=== PATIENT | male | born 1950 | race Caucasian/White ===

== ENCOUNTER 2016-06-11 13:40 | Inpatient (IN) | payer MEDICARE, MEDICAID ==
[~2016-06-11] VITALS: Ht 185.4 cm; Wt 114.4 kg
[~2016-06-11 13:40] MED LIST: HYDROCODONE-APA1 TA1 PO
[2016-06-11 13:43] VITALS: BP 109/59
[2016-06-11 14:02] LABS: HEMOGLOBIN 10.4 g/dL (14.1-18.0); LYMPH # 0.9 K/mm3 (0.7-4.5); LYMPH % 7.5 % (10-50)
[2016-06-11 14:03] LABS: URINE BLOOD 3+ (NEG)
[2016-06-11 14:08] LABS: URINE BILIRUBIN - DIPSTICK NEGATIVE (NEG)
--- NOTE | 2016-06-11 14:19 | Emergency Room Report ---
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 ADVISES PT NORMALLY HAS A CATH AND IT WAS REMOVED AND PT HAS HX OF HYDRONEPHROSIS. 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 N Clinical Suspician of Infection? N Mental Status: 1 - Regular (Normal Baseline) Sepsis Risk:Low Sepsis Risk Have you (or family members/close friends) recently traveled outside the [place]? N If Yes, where/when: Have you had exposure to infectious disease within the past month? N TB? Other? Specify: Patient states he is having some intermittent abdominal pain he states one episode of diarrhea he relates a history of back in March of having some of his toes and dictated on his LEFT leg and that he has a kidney stone in place he believes on the LEFT side that is still there and that his LEFT kidney doesn't work secondary to the blockage of the stone he states he has a follow-up appointment upcoming this she will Be done about that he states today that his legs are swollen up again his family member states his legs up and swollen like this previously patient states that he had a Rivera in place and there is moves several days ago and since then he hasn't had much urination. He denies any fevers or chills and denies any nausea or vomiting. States his abdominal pain when he has it is mild to moderate severity crampy. He complains more of a little bit of nausea now versus pain per se. No complaint of headache or chest pain Comment no old ekg call out to cardiology 340pm ALLERGIES Coded Allergies: No Known Allergies (01/28/15) History Medical History General CAD? No Immunization Hx DT/Tetanus 5-10 Years Ago Surgical Hx Previous Surgery?N Social History Smoking Hx Smoker: Former Smoker Tobacco: No Packs/day 1 1/2 - 2 Packs Alcohol Alcohol: No Review of Systems All Other Systems Reviewed and Negative Physical Exam Vital Signs Vital Signs Date Time Temp Pulse Resp B/P Pulse O2 O2 Flow FiO2 Ox Delivery Rate 06/11 1343 98.6 89 16 109/59 98 General Appearance: Nontoxic Head: Normocephalic, without obvious abnormality, atraumatic. Eyes: conjunctiva/corneas clear ENT: Mucous membranes moist. Neck: No jugular venous distention. Cardiac: regular rate and rhythm Lungs: Clear to auscultation bilaterally Abdomen: Nontender, Nondistended, positive bowel sounds, no rebound : No CVA tenderness Extremities: 3+ edema ble Musculoskeletal: No chest wall tenderness Skin: No rashes or lesions to exposed skin. Neurologic: Alert. No gross focal deficits Psychiatric: Normal affect (Seth HOLLIS, Jai) General Appearance normal appearance Respiratory Status No: respiratory distress. Cardiovascular no JVD Neurologic alert Medical Decision Making LABS/Meds/Orders Pt receiving controlled substance in ED? No Comment Patient has some dark urine in his bag not much is coming out is 3+ pitting edema is got a combination of third spacing of his fluid in his legs as well as looking possibly dry and neurovascularly with dark yellow urine less than 100 mL in his bag. We will await labs, ct, before giving either Lasix versus fluids. i had dw cardiology troponin, desired ECHO CT comes back with bilateral obstruction + UTI, needs stents, transfer to [phone] call out to Results/Orders Laboratory Tests 06/11/16 1353: Lipase 16 L 06/11/16 1353: Sodium 143, Potassium 4.7, Chloride 107, Carbon Dioxide 29, BUN 24 H, Creatinine 2.4 H, Estimated Creat Clear 49 L, Estimated GFR (MDRD) 27, Glucose 154 H, Calcium 7.9 L, Total Bilirubin 0.5, AST 10 L, ALT 18, Alkaline Phosphatase 82, Creatine Kinase 20 L, CK-MB (CK-2) Rel Index 7.0 H, CK and CKMB Interp 1.4, Troponin I 0.34 H, B-Natriuretic Peptide 376 H, Total Protein 5.2 L, Albumin 2.2 L, Globulin 3.0, Albumin/Globulin Ratio 0.7 L, WBC 11.4 H , RBC 3.37 L, Hgb 10.4 L, Hct 32.9 L, MCV 97.4, RDW 14.0, Plt Count 258, MPV 7.1 L, Gran % 85.7 H, Gran # 9.8 H, Total Counted 100, Lymphocytes % 7.5 L, Monocytes % 6.5, Eosinophils % 0.1, Basophils % 0.2, Neutrophils 77 H, Band Neutrophils 8, Lymphocytes (Manual) 14, Lymphocytes # 0.9, Monocytes (Manual) 1 L, Monocytes # 0.7, Eosinophils # 0.0, Basophils # 0.0, RBC/WBC/PLT Morphology NORMAL, Platelet Estimate NORMAL, PUBS MCHC 31.7 L, MCH 30.8, Urine Color OTHER , Urine Appearance TURBID, Urine pH 8.0, Ur Specific [place] 1.020, Urine Protein 3+ H, Urine Ketones NEGATIVE, Urine Blood 3+ H, Urine Nitrate POSITIVE H, Urine Bilirubin NEGATIVE, Urine Urobilinogen 0.2, Ur Leukocyte Esterase 3+ H, Urine RBC 20-50, Urine WBC TNTC, Urine Bacteria 4+, Urine Glucose NEGATIVE Current Medication Orders Sig/Alex Start time Last Medication Dose Route Stop Time Status Admin Levofloxacin/Dextrose 150 ML ONCE ONE 06/11 1615 CKDr IV 06/11 1744 Aspirin 0 .STK-MED ONE 06/11 1530 DC .ROUTE Aspirin 324 MG ONCE ONE 06/11 1515 DC 06/11 PO 06/11 1516 1531 Sodium Chloride 10 ML PRN PRN 06/11 1400 AC IV 06/12 1348 Orders Procedure Date/time Status DIET-NOTHING BY MOUTH 06/11 D Active CULTURE, BLOOD 06/11 1610 Active LACTIC ACID 06/11 1610 Active ECHO ADULT 06/[address] ABD REQUEST 06/11 1419 Complete LIPASE 06/11 1419 Complete CULTURE, URINE 06/11 1353 Active DIFFERENTIAL-WBC 06/11 1353 Complete IV SALINE LOCK 06/11 1349 Active URINARY CATHETER INSERT 06/11 1349 Active URINALYSIS/COMPLETE 06/11 1349 Complete CBC WITH AUTO DIFF 06/11 1349 Complete CARDIAC ENZYMES 06/11 1349 Complete CHEM 12 PROFILE 06/11 1349 Complete BRAIN NATRIURETIC PEPTIDE 06/11 1349 Complete CM/EKG 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 Clinical Impression Primary Impression: Hydronephrosis Qualifiers: Hydronephrosis type: with renal calculous obstruction Qualified Code: N13.2 - Hydronephrosis with renal and ureteral calculous obstruction Secondary Impressions: Edema Qualifiers: Edema type: unspecified Qualified Code: R60.9 - Edema, unspecified Elevated troponin Pneumonia UTI (urinary tract infection) Qualifiers: Urinary tract infection type: acute pyelonephritis Qualified Code: N10 - Acute pyelonephritis Condition STABLE Referrals ANTHONY BRIZUELA APRN (PCP/Family) ED Critical Care Critical Care No at 1615
[2016-06-11 14:33] LABS: NEUTROPHILS 77 % (42-76)
--- NOTE | 2016-06-11 15:27 | RADIOLOGY REPORT PS360 ---
CT ABD PELVIS W/O CONTRAST CLINICAL INDICATION: Kidney stones, abdominal pain, diarrhea KIDNEY,HYDRONEPHROSIS,ABD PAIN ORDERING PHYSICIAN: Jai Ann MD PATIENT AGE: 66 years COMPARISON: None TECHNIQUE: Axial images obtained with sagittal and coronal reformats. PROCEDURE: Oral Contrast: None IV Contrast: None . FINDINGS: There is consolidation with air bronchograms in the right lung base posteriorly consistent with pneumonia. Right hemidiaphragm is slightly elevated. No focal liver lesion evident. Gallbladder is slightly distended. Spleen, pancreas, and right adrenal gland are unremarkable. Left adrenal gland is slightly enlarged. There is right nephrolithiasis with multiple right renal stones. The largest measures 16 mm in the lower pole of the right kidney. There is moderate right hydronephrosis and hydroureter secondary to a 12 mm stone in the distal right ureter at the region of the pelvic inlet. There is severe chronic left hydronephrosis with marked cortical thinning of the left kidney. Severe left ureteral dilatation is also present. There is an obstructing 10 mm stone in the distal left ureter also at the level of the pelvic inlet. Both right and left distal ureteral stones are approximately 6 cm proximal to the ureterovesical junction. There is mild stranding of the right perinephric and periureteral fat. The right kidney does not appear atrophic as does the left kidney. Obstruction on the right is probably acute. No evidence of appendicitis or diverticulitis. There is mild amount residual colonic feces in the splenic flexure. There is mild chronic wedging of T11. IMPRESSION: 1. Elevated right hemidiaphragm with right lower lobe consolidation/pneumonia posteriorly. 2. 12 mm right distal ureteral stone causing moderate right-sided obstructive uropathy which appears acute with stranding of the right periureteral and perirenal fat. Right nephrolithiasis. 3. 10 mm left distal ureteral stone causing chronic left-sided obstruction with severe left hydronephrosis and cortical thinning of the left kidney. 4. Other nonacute findings as described above.
--- NOTE | 2016-06-11 15:29 | RADIOLOGY REPORT PS360 ---
CHEST-PORTABLE HISTORY: FLUID RETENTION ORDERING PHYSICIAN: Jai Ann MD PATIENT AGE: 66 years COMPARISON: None available FINDINGS: There is mild cardiomegaly without definite failure. Right hemidiaphragm is elevated with consolidation in the right lung base. Left lung is clear. There is mild prominence of the mediastinum likely due to tortuosity/ectasia of the aorta. There are old fractures of the left first and second ribs anteriorly IMPRESSION: 1. Cardiomegaly without failure. 2. Elevated right hemidiaphragm with right basilar consolidation or pneumonia
[2016-06-11 22:20] VITALS: BP 141/63
[2016-06-11 23:01] VITALS: BP 141/63
[2016-06-11] MEDS ORDERED: ELIQUIS5 MG PO (23:15)
[2016-06-11] MEDS ORDERED: TYLENOL325 MG PO (23:16)
[2016-06-11] MEDS ORDERED: DIGOXIN0.125 MG PO (23:17)
[2016-06-11] MEDS ORDERED: PREDNISONE 10MG10 MG PO (23:18)
[2016-06-11] MEDS ORDERED: COREG 12.5 MG12.5 MG PO (23:19)
[2016-06-11] MEDS ORDERED: PEPCID 20MG TAB20 MG PO (23:21)
[2016-06-11] MEDS ORDERED: CULTURELLE DIGE1 CAP PO (23:21)
[2016-06-11] MEDS ORDERED: FSBS SC (23:22)
[2016-06-11] MEDS ORDERED: HUMALOG100 U/ML SC (23:23)
[2016-06-11] MEDS ORDERED: SYNTHROID 0.00.05 MG PO (23:24)
[2016-06-11] MEDS ORDERED: FLOMAX 0.4MG C0.4 MG PO (23:25)
[2016-06-11] MEDS ORDERED: SENNA LAXATIVE8.6 MG PO (23:25)
[2016-06-11] MEDS ORDERED: ALBUTEROL2.5 MG/NEB INH (23:27)
[2016-06-11] MEDS ORDERED: VITAMIN D31000 IU PO (23:29)
[2016-06-11] MEDS ORDERED: LASIX20 MG PO (23:30)
[2016-06-11] MEDS ORDERED: IMODIUM A-D2 M3 PO (23:31)
[2016-06-11 23:32] VITALS: BP 136/71
[2016-06-11] MEDS ORDERED: COMBIVENT RESPI1 SPR IH (23:36)
[2016-06-12 02:39] LABS: ARTERIAL ABE -4.4 MMOL/L (-2.4-+2.3); ARTERIAL PO2 59.1 MMHG (80-100); ARTERIAL TCO2 21.1 MMOL/L (23-27)
[2016-06-12 02:40] LABS: ALLEN'S TEST PATIENT UNABLE
[2016-06-12 02:55] VITALS: BP 123/64
[2016-06-12 02:59] LABS: LYMPH # 0.2 K/mm3 (0.7-4.5); LYMPH % 3.7 % (10-50)
[2016-06-12 03:05] LABS: HEMOGLOBIN 11.8 g/dL (14.1-18.0)
[2016-06-12 03:15] VITALS: BP 144/50
[2016-06-12 03:41] VITALS: BP 127/48
--- NOTE | 2016-06-12 04:05 | Discharge Summary Standard ---
Demographics: Admit date: 06/11/16 Chief complaint: uti PRIMARY DIAGNOSIS: Hydronephrosis with Renal calculous Allergies: Coded Allergies: No Known Allergies (01/28/15) History of present illness: History of present illness: this wm was sent from [facility] for swollen legs and change in mental status- pt has hx of iddm, hx of a fib, copd, htn, prev cva, lt foot infection with amputation and has cri and hypothyroidism- he had been doing ok with nl bmp 06/07/16-pt was on eliquis at [facility]- but not known last dose- he was seen in the [facility] ed and had obstructive uropathy with uti and was admitted to [facility] awaiting transfer to another facility- Past medical history: Family HX Diabetes Yes CAD No Hypertension Yes Hyperlipidemia No Cancer No TB No Immunization HX DT/Tetanus 5-10 Years Ago Pneumonia Never Had TB Test in last year Yes Result Negative General CAD? No Angina: No [place]: No Hypertension? No Hyperlipidemia? No CHF? No DVT? No PE? No COPD? Yes Asthma? No Anemia? No GERD? Yes Gastric ulcers? No GI Bleed? No Hernia? No Thyroid Problems? No Hypothyroidism? No CVA? No Seizures? No Diabetes? Yes Insulin Dependent: Yes Insulin Pump: No Home FSBS? Yes Renal Insuffiency? Yes UTI? Yes Stones? Yes BPH? Yes GB Disease: No Nephritic Syndrome? Yes Asplenia? No Hepatitis? No Sickle Cell Disease? No Arthritis? Yes Migraines? No Cataracts? No Glaucoma? No MRSA? No HIV? No TB? No Anxiety? No Depression? No Cancer? No More? No Past Surgical HX Previous Surgery?N Current home meds: Reported Medications Apixaban (Eliquis) 5 MG PO BID Acetaminophen (Tylenol) 650 MG PO Q4HP PRN PAIN/FEVER DIGOXIN (Digox) 0.125 MG PO DAILY Prednisone (Prednisone 10MG) 10 MG PO DAILY Carvedilol (Coreg 12.5Mg) 12.5 MG PO BID L. RHAMNOSUS GG/INULIN (Culturelle Capsule) (Unknown Dose) PO BID Famotidine (Pepcid 20MG Tablet) 20 MG PO BID MISCELLANEOUS (Fingerstick Blood Sugar) 1 STI SC ACHS Insulin Lispro, Recombinant (Humalog 100 UNITS/ML 10ML) 0 UNITS SC ACHS Levothyroxine Sodium (Synthroid 0.05MG) 0.05 MG PO DAILY Senna Pod (Senna Laxative) 1 TAB PO QHS TAMSULOSIN HCL (Flomax 0.4MG) 0.4 MG PO QHS ALBUTEROL (Albuterol 0.083% Neb) 2.5 MG INH Q4HP PRN BREATHING CHOLECALCIFEROL (VITAMIN D3) (Vitamin D) 1,000 IUNITS PO WEEKLY Furosemide (Lasix) 20 MG PO MWF Loperamide HCl (Imodium A-D) 4 MG PO Q4HP PRN DIARRHEA ALBUTEROL/IPRATROPIUM (Combivent Respimat Inhal [place]) 1 PUFF IH QIDRT Social Hx: Smoking HX Tobacco No Type N/A Packs/day 1 1/2 - 2 PACKS Alcohol Alcohol: No Hx of Drug Use Drug Use? No Patien't marital status is Patient's support system is good Review of systems: Constitutional see HPI, fever, weakness. Eyes No: drainage. Ears, Nose, Mouth, Throat No ear discharge, No epistaxis, No throat pain Respiratory shortness of breath. No: cough, wheezing. Cardiovascular No chest pain, No palpitations, No syncope Gastrointestinal/Abdominal see HPI, No diarrhea, poor appetite, poor fluid intake, vomiting Genitourinary see HPI. No: dysuria, frequency, hesitancy, hematuria. Musculoskeletal No: joint pain, neck pain. Skin No: rash. Neurological Yes: see HPI. No: headache, tremors, seizure disorder. Psychiatric No: no symptoms reported. Exam: Lab data for last 24 hours: Laboratory Tests 06/12/16 0245: Lactic Acid 1.8 06/12/16 0233: ABG pH 7.41, ABG pCO2 (Temp Corrct 32.3 L, ABG pO2 (Temp Correct 59.1 L, ABG HCO3 20.2 L, ABG Total CO2 21.1 L, ABG O2 Sat (Calculated) 89.0 L, ABG Base Excess -4.4 L, Jovan Test PATIENT UNABLE 06/12/16 0225: Sodium 140, Potassium 4.7, Chloride 102, Carbon Dioxide 26, BUN 33 H, Creatinine 3.4 H, Estimated Creat Clear 34 L, Estimated GFR (MDRD) 18, Glucose 110 H, Calcium 7.9 L, Troponin I 0.43 H, WBC 4.9, RBC 3.86 L, Hgb 11.8 L, Hct 37.6 L, MCV 97.4, RDW 14.0, Plt Count 237, MPV 6.7 L, Gran % 94.5 H, Gran # 4.7, Lymphocytes % 3.7 L, Monocytes % 1.2 L, Eosinophils % 0.5, Basophils % 0.1, Lymphocytes # 0.2 L, Monocytes # 0.1, Eosinophils # 0.0, Basophils # 0.0, PUBS MCHC 31.5 L, MCH 30.6 06/12/16 0120: Creatine Kinase 18 L, CK-MB (CK-2) Rel Index 6.1 H, CK and CKMB Interp 1.1, Troponin I 0.36 H 06/11/16 2200: Creatine Kinase 20 L, CK-MB (CK-2) Rel Index 7.0 H, CK and CKMB Interp 1.4, Troponin I 0.34 H 06/11/16 2048: Lactic Acid 1.8 06/11/16 1353: Lipase 16 L 06/11/16 1353: Sodium 143, Potassium 4.7, Chloride 107, Carbon Dioxide 29, BUN 24 H, Creatinine 2.4 H, Estimated Creat Clear 49 L, Estimated GFR (MDRD) 27, Glucose 154 H, Calcium 7.9 L, Total Bilirubin 0.5, AST 10 L, ALT 18, Alkaline Phosphatase 82, Creatine Kinase 20 L, CK-MB (CK-2) Rel Index 7.0 H, CK and CKMB Interp 1.4, Troponin I 0.34 H, B-Natriuretic Peptide 376 H, Total Protein 5.2 L, Albumin 2.2 L, Globulin 3.0, Albumin/Globulin Ratio 0.7 L, WBC 11.4 H , RBC 3.37 L, Hgb 10.4 L, Hct 32.9 L, MCV 97.4, RDW 14.0, Plt Count 258, MPV 7.1 L, Gran % 85.7 H, Gran # 9.8 H, Total Counted 100, Lymphocytes % 7.5 L, Monocytes % 6.5, Eosinophils % 0.1, Basophils % 0.2, Neutrophils 77 H, Band Neutrophils 8, Lymphocytes (Manual) 14, Lymphocytes # 0.9, Monocytes (Manual) 1 L, Monocytes # 0.7, Eosinophils # 0.0, Basophils # 0.0, RBC/WBC/PLT Morphology NORMAL, Platelet Estimate NORMAL, PUBS MCHC 31.7 L, MCH 30.8, Urine Color OTHER , Urine Appearance TURBID, Urine pH 8.0, Ur Specific [place] 1.020, Urine Protein 3+ H, Urine Ketones NEGATIVE, Urine Blood 3+ H, Urine Nitrate POSITIVE H, Urine Bilirubin NEGATIVE, Urine Urobilinogen 0.2, Ur Leukocyte Esterase 3+ H, Urine RBC 20-50, Urine WBC TNTC, Urine Bacteria 4+, Urine Glucose NEGATIVE Microbiology 06/12 2047 BLOOD: Anaerobic Blood Culture - RECD 06/12 2047 BLOOD: Aerobic Blood Culture - RECD 06/12 2047 BLOOD: Anaerobic Blood Culture - RECD 06/12 2047 BLOOD: Aerobic Blood Culture - RECD 06/11 1353 URINE CATH: Urine Culture - RECD Admission vital signs: 1ST Vital Signs Result Date Time Pulse Ox 98 06/11 1343 B/P 109/59 06/11 1343 Temp 98.6 06/11 1343 Pulse 89 06/11 1343 Resp 16 06/11 1343 O2 Delivery ROOM AIR 06/11 2220 O2 Flow Rate 4 06/12 0255 Exam General appearance: awake, moderate distress, lethargic Eyes: anicteric, PERRLA ENT: dry mucous membranes Neck: no JVD, supple Cardiovascular: regular rate & rhythm, murmur Respiratory: no respiratory distress, diminished breath sounds ABD: no rebound, soft Genitourinary: catheter in place Extremities: moves all, no calf tenderness, edema Musculoskeletal: motor intact Skin: dry Neuro: no focal deficit, confused Hospital Course Hospital Course: pt had recieved levofloxin and was doing ok in ed and floor but a couple of hrs ago dev change in mental status with inc hr and resp rate - pt was found to have fever of 105.2 and had inc renal insuff with change in mental status and was discussed with urology and will be transferred to ed for emergency eval by [facility]- diagnosis sepsis, obstructive uropathy, acute renal failure, copd, elevated troponin, uti Medications Medications: Discharge meds are as noted. Follow up Follow up in office in: 2 WEEKS with: Kulwant Martinez MD at [phone]
--- NOTE | 2016-06-12 04:05 | Discharge Summary Standard ---
Demographics: Admit date: 06/11/16 Chief complaint: uti PRIMARY DIAGNOSIS: Hydronephrosis with Renal calculous Allergies: Coded Allergies: No Known Allergies (01/28/15) History of present illness: History of present illness: this wm was sent from [facility] for swollen legs and change in mental status- pt has hx of iddm, hx of a fib, copd, htn, prev cva, lt foot infection with amputation and has cri and hypothyroidism- he had been doing ok with nl bmp 06/07/16-pt was on eliquis at [facility]- but not known last dose- he was seen in the [facility] ed and had obstructive uropathy with uti and was admitted to [facility] awaiting transfer to another facility- Past medical history: Family HX Diabetes Yes CAD No Hypertension Yes Hyperlipidemia No Cancer No TB No Immunization HX DT/Tetanus 5-10 Years Ago Pneumonia Never Had TB Test in last year Yes Result Negative General CAD? No Angina: No [place]: No Hypertension? No Hyperlipidemia? No CHF? No DVT? No PE? No COPD? Yes Asthma? No Anemia? No GERD? Yes Gastric ulcers? No GI Bleed? No Hernia? No Thyroid Problems? No Hypothyroidism? No CVA? No Seizures? No Diabetes? Yes Insulin Dependent: Yes Insulin Pump: No Home FSBS? Yes Renal Insuffiency? Yes UTI? Yes Stones? Yes BPH? Yes GB Disease: No Nephritic Syndrome? Yes Asplenia? No Hepatitis? No Sickle Cell Disease? No Arthritis? Yes Migraines? No Cataracts? No Glaucoma? No MRSA? No HIV? No TB? No Anxiety? No Depression? No Cancer? No More? No Past Surgical HX Previous Surgery?N Current home meds: Reported Medications Apixaban (Eliquis) 5 MG PO BID Acetaminophen (Tylenol) 650 MG PO Q4HP PRN PAIN/FEVER DIGOXIN (Digox) 0.125 MG PO DAILY Prednisone (Prednisone 10MG) 10 MG PO DAILY Carvedilol (Coreg 12.5Mg) 12.5 MG PO BID L. RHAMNOSUS GG/INULIN (Culturelle Capsule) (Unknown Dose) PO BID Famotidine (Pepcid 20MG Tablet) 20 MG PO BID MISCELLANEOUS (Fingerstick Blood Sugar) 1 STI SC ACHS Insulin Lispro, Recombinant (Humalog 100 UNITS/ML 10ML) 0 UNITS SC ACHS Levothyroxine Sodium (Synthroid 0.05MG) 0.05 MG PO DAILY Senna Pod (Senna Laxative) 1 TAB PO QHS TAMSULOSIN HCL (Flomax 0.4MG) 0.4 MG PO QHS ALBUTEROL (Albuterol 0.083% Neb) 2.5 MG INH Q4HP PRN BREATHING CHOLECALCIFEROL (VITAMIN D3) (Vitamin D) 1,000 IUNITS PO WEEKLY Furosemide (Lasix) 20 MG PO MWF Loperamide HCl (Imodium A-D) 4 MG PO Q4HP PRN DIARRHEA ALBUTEROL/IPRATROPIUM (Combivent Respimat Inhal [place]) 1 PUFF IH QIDRT Social Hx: Smoking HX Tobacco No Type N/A Packs/day 1 1/2 - 2 PACKS Alcohol Alcohol: No Hx of Drug Use Drug Use? No Patien't marital status is Patient's support system is good Review of systems: Constitutional see HPI, fever, weakness. Eyes No: drainage. Ears, Nose, Mouth, Throat No ear discharge, No epistaxis, No throat pain Respiratory shortness of breath. No: cough, wheezing. Cardiovascular No chest pain, No palpitations, No syncope Gastrointestinal/Abdominal see HPI, No diarrhea, poor appetite, poor fluid intake, vomiting Genitourinary see HPI. No: dysuria, frequency, hesitancy, hematuria. Musculoskeletal No: joint pain, neck pain. Skin No: rash. Neurological Yes: see HPI. No: headache, tremors, seizure disorder. Psychiatric No: no symptoms reported. Exam: Lab data for last 24 hours: Laboratory Tests 06/12/16 0245: Lactic Acid 1.8 06/12/16 0233: ABG pH 7.41, ABG pCO2 (Temp Corrct 32.3 L, ABG pO2 (Temp Correct 59.1 L, ABG HCO3 20.2 L, ABG Total CO2 21.1 L, ABG O2 Sat (Calculated) 89.0 L, ABG Base Excess -4.4 L, Jovan Test PATIENT UNABLE 06/12/16 0225: Sodium 140, Potassium 4.7, Chloride 102, Carbon Dioxide 26, BUN 33 H, Creatinine 3.4 H, Estimated Creat Clear 34 L, Estimated GFR (MDRD) 18, Glucose 110 H, Calcium 7.9 L, Troponin I 0.43 H, WBC 4.9, RBC 3.86 L, Hgb 11.8 L, Hct 37.6 L, MCV 97.4, RDW 14.0, Plt Count 237, MPV 6.7 L, Gran % 94.5 H, Gran # 4.7, Lymphocytes % 3.7 L, Monocytes % 1.2 L, Eosinophils % 0.5, Basophils % 0.1, Lymphocytes # 0.2 L, Monocytes # 0.1, Eosinophils # 0.0, Basophils # 0.0, PUBS MCHC 31.5 L, MCH 30.6 06/12/16 0120: Creatine Kinase 18 L, CK-MB (CK-2) Rel Index 6.1 H, CK and CKMB Interp 1.1, Troponin I 0.36 H 06/11/16 2200: Creatine Kinase 20 L, CK-MB (CK-2) Rel Index 7.0 H, CK and CKMB Interp 1.4, Troponin I 0.34 H 06/11/16 2048: Lactic Acid 1.8 06/11/16 1353: Lipase 16 L 06/11/16 1353: Sodium 143, Potassium 4.7, Chloride 107, Carbon Dioxide 29, BUN 24 H, Creatinine 2.4 H, Estimated Creat Clear 49 L, Estimated GFR (MDRD) 27, Glucose 154 H, Calcium 7.9 L, Total Bilirubin 0.5, AST 10 L, ALT 18, Alkaline Phosphatase 82, Creatine Kinase 20 L, CK-MB (CK-2) Rel Index 7.0 H, CK and CKMB Interp 1.4, Troponin I 0.34 H, B-Natriuretic Peptide 376 H, Total Protein 5.2 L, Albumin 2.2 L, Globulin 3.0, Albumin/Globulin Ratio 0.7 L, WBC 11.4 H , RBC 3.37 L, Hgb 10.4 L, Hct 32.9 L, MCV 97.4, RDW 14.0, Plt Count 258, MPV 7.1 L, Gran % 85.7 H, Gran # 9.8 H, Total Counted 100, Lymphocytes % 7.5 L, Monocytes % 6.5, Eosinophils % 0.1, Basophils % 0.2, Neutrophils 77 H, Band Neutrophils 8, Lymphocytes (Manual) 14, Lymphocytes # 0.9, Monocytes (Manual) 1 L, Monocytes # 0.7, Eosinophils # 0.0, Basophils # 0.0, RBC/WBC/PLT Morphology NORMAL, Platelet Estimate NORMAL, PUBS MCHC 31.7 L, MCH 30.8, Urine Color OTHER , Urine Appearance TURBID, Urine pH 8.0, Ur Specific [place] 1.020, Urine Protein 3+ H, Urine Ketones NEGATIVE, Urine Blood 3+ H, Urine Nitrate POSITIVE H, Urine Bilirubin NEGATIVE, Urine Urobilinogen 0.2, Ur Leukocyte Esterase 3+ H, Urine RBC 20-50, Urine WBC TNTC, Urine Bacteria 4+, Urine Glucose NEGATIVE Microbiology 06/12 2047 BLOOD: Anaerobic Blood Culture - RECD 06/12 2047 BLOOD: Aerobic Blood Culture - RECD 06/12 2047 BLOOD: Anaerobic Blood Culture - RECD 06/12 2047 BLOOD: Aerobic Blood Culture - RECD 06/11 1353 URINE CATH: Urine Culture - RECD Admission vital signs: 1ST Vital Signs Result Date Time Pulse Ox 98 06/11 1343 B/P 109/59 06/11 1343 Temp 98.6 06/11 1343 Pulse 89 06/11 1343 Resp 16 06/11 1343 O2 Delivery ROOM AIR 06/11 2220 O2 Flow Rate 4 06/12 0255 Exam General appearance: awake, moderate distress, lethargic Eyes: anicteric, PERRLA ENT: dry mucous membranes Neck: no JVD, supple Cardiovascular: regular rate & rhythm, murmur Respiratory: no respiratory distress, diminished breath sounds ABD: no rebound, soft Genitourinary: catheter in place Extremities: moves all, no calf tenderness, edema Musculoskeletal: motor intact Skin: dry Neuro: no focal deficit, confused Hospital Course Hospital Course: pt had recieved levofloxin and was doing ok in ed and floor but a couple of hrs ago dev change in mental status with inc hr and resp rate - pt was found to have fever of 105.2 and had inc renal insuff with change in mental status and was discussed with urology and will be transferred to ed [facility]- diagnosis sepsis, obstructive uropathy, acute renal failure, copd, elevated troponin, uti Medications Medications: Discharge meds are as noted. Follow up Follow up in office in: 2 WEEKS with: Kulwant Martinez MD at [phone]
[2016-06-12 04:10] VITALS: BP 96/36
--- NOTE | 2016-06-12 09:15 | RADIOLOGY REPORT PS360 ---
CHEST-PORTABLE COMPARISON: Portable upright chest 06/11/2016 HISTORY: UTI, suspect possible pneumonia TECHNIQUE: Portable upright chest FINDINGS: There is slight respiratory motion degrading the image somewhat. Again noted is elevation of the right hemidiaphragm. There are likely is minimal infiltrate in the right perihilar region. The right upper lung field and left lung field are clear. There is mild generalized cardio megaly without failure. IMPRESSION: Question minimal right perihilar bronchopneumonia versus atelectasis or scarring, respiratory motion makes evaluation suboptimal.
--- NOTE | 2016-06-14 07:28 | RADIOLOGY REPORT PS360 ---
PROCEDURE: 2-D M-mode and color Doppler study INDICATIONS FOR THE TEST: Chest pain COPD+ Heart Murmur Tobacco Smoking+ Palpitations Fatigue Syncope Edema+ Hypertension Diabetes Mellitus+ Rheumatic Fever SOB+KNIGHT+Obesity+Hyperlipidemia Family History HD Additional History CHF, CAD (stent) PATIENT INFORMATION HEIGHT: 73 WEIGHT: 260 GENDER: Male B/P: 116/67 2-D/M-MODE INTERPRETATION: 2-D MEASUREMENTS OBSERVED VALUES IN CMS M-mode dimensions are off axis hence not mentioned. 2D 1. Technically very difficult and poor study, valvular structures are not well visualized. 2. The left atrium is mildly enlarged, left ventricle appears to be normal size, there is abnormal septal motion, there is probably preserved left ventricular systolic function, this study is suboptimal for segmental wall motion analysis. Repeat study with Definity contrast is recommended. 3. The right atrium is normal size, right ventricle appears to be moderately enlarged with mild reduced contractility. 4. The aortic, mitral, tricuspid and pulmonic valve are not well visualized. 5. No significant pericardial effusion noted. DOPPLER INTERROGATION: Color flow mapping and Doppler is suboptimal for interpretation CONCLUSION: 1. Very poor and suboptimal study as described above. 2. Probably preserved left ventricular systolic function as described above. 3. A repeat study with Definity contrast is recommended. 4. Moderately enlarged right ventricle with mild reduced contractility. 5. No significant pericardial effusion noted.
[2016-06-24] MEDS ORDERED: ASPIRIN 81MG TA81 MG PO (05:08)
[2016-06-24] MEDS ORDERED: CEFTRIAXONE2 GM IV (05:09)
[2016-06-24] MEDS ORDERED: DOCUSATE SODIUM1 TA2 PO (05:10)
[2016-06-24] MEDS ORDERED: COREG25 MG PO (05:10)
[2016-06-24] MEDS ORDERED: ELIQUIS5 MG PO (05:12)
[2016-06-24] MEDS ORDERED: MILLIPRED DP5 MG PO (05:14)
[2016-06-24] MEDS ORDERED: PEPCID 20MG TAB20 MG PO (05:15)
[2016-06-24] MEDS ORDERED: ASMANEX TW0.22 MG/A1 IH (05:16)
[2016-06-24] MEDS ORDERED: LISINOPRIL 10MG10 MG PO (05:16)
[2016-06-24] MEDS ORDERED: SYNTHROID 0.00.05 MG PO (05:17)
[2016-06-24] MEDS ORDERED: LIPITOR80 MG PO (05:18)
[2016-06-24] MEDS ORDERED: HUMALOG100 U/M1 SC (05:20)
[2016-06-24] MEDS ORDERED: ALBUTEROL-200 PUFFS/ IH (05:21)
[2016-06-24] MEDS ORDERED: IMODIUM A-D2 M3 PO (05:22)
== END 2016-06-12 04:33 | disposition short-term general hospital (02) | DRG 689 ==
LOC: ER 13:40 → 2ND 21:22 → ER 21:22 → 2ND 21:33
PROVIDERS: Emergency Medicine
DX: N13.6 Pyonephrosis (principal); A41.9 Sepsis, unspecified organism; J44.9 Chronic obstructive pulmonary disease, unspecified; E11.9 Type 2 diabetes mellitus without complications; I10 Essential (primary) hypertension; B96.4 Proteus (mirabilis) (morganii) as the cause of diseases classified elsewhere; Z87.891 Personal history of nicotine dependence
CPT/HCPCS: J2543